=== PATIENT | female | born 1980 | race Asian ===

== ENCOUNTER 2018-03-20 06:52 | Outpatient (CLI) | payer OTHER ==
--- NOTE | 2018-03-20 12:06 | NM ---
HEPATOBILIARY SCAN: Date: 03-20-18 History: Unspecific abdominal pain. Technique: Following the intravenous administration of 5.3 mCi Technetium 99M labelled Mebrofenin, an terior planar imaging was obtained over approximately 60 minutes. Upon visualization of the gallbladd er, the patient ingested 8 oz of Ensure to calculate the ejection fraction of the gallbladder. FINDINGS: There is prompt radiotracer activity within the liver on post injection imaging. Gallbladder is seen by 10-15 minutes. Gallbladder ejection is 64%, within normal limits. IMPRESSION: Scintigraphic evidence of cystic duct patency. Normal gallbladder ejection fraction. POS: [facility]
== END 2018-03-20 06:53 | disposition home or self-care (01) ==
LOC: NM 06:52
PROVIDERS: ATTEND Internal Medicine Gastroenterology
DX: R10.9 Unspecified abdominal pain (principal); K82.8 Other specified diseases of gallbladder
CPT/HCPCS: 78227; A9537